=== PATIENT | female | born 1955 | race Two or more races ===

== ENCOUNTER 2018-01-15 08:54 | Day surgery (SDC) | payer OTHER ==
[2018-01-15] MEDS ORDERED: PROPOFOL 20 ML ×2 (10:27→10:47)
== END 2018-01-15 11:22 | disposition home or self-care (01) ==
LOC: GIL 08:54
DX: K29.50 Unspecified chronic gastritis without bleeding (principal); E11.9 Type 2 diabetes mellitus without complications; I10 Essential (primary) hypertension
CPT/HCPCS: 43239; 82962; 88305; 88312